=== PATIENT | female | born 1950 | race Caucasian/White ===

== ENCOUNTER 2018-09-10 06:31 | Day surgery (SDC) | payer BC, MEDICARE ==
[~2018-09-10] VITALS: Ht 170.2 cm; Wt 100.2 kg
[~2018-09-10 06:31] MED LIST: ALDACTONE25 MG PO; AMIODARONE200 MG OR; AMIODARONE200 MG PO; ASPIRIN EC81 MG PO; ASPIRIN LOW DOS81 M2 PO; ASPIRIN325 MG PO; ATORVASTATIN CA40 MG PO; BAYER ASA325 MG OR; BAYER ASPIRIN325 MG PO; BENICAR HCT1 TA1 OR; CARAFATE1 G1 PO; DARVOCET-N 100100 MG OR; DIABETA2.5 MG PO; DIGOXIN0.25 MG PO; DRY E-NATUR400 UNIT PO; FOLIC ACID1 MG PO; FOLIC ACID400 MC1 PO; GLYBURIDE5 M1 PO; HYDROXYCHLOR200 MG PO; IMDUR30 MG OR; IMDUR30 MG PO; INVOKANA300 MG PO; K-DUR/KLOR-CON10 MEQ OR; KLOR-CON M2020 MEQ PO; LASIX 40 MG40 MG/TAB PO; LASIX20 MG OR; LISINOP/HCTZ1 TA1 PO; LORTAB 5/3255 MG PO; MEDDOSEPAK PO; METHOTREXATE2.5 MG OR; METHOTREXATE2.5 MG PO; METO25TAB PO; METO50TA52 PO; MICRO-K10 ME1 PO; NITROLINGUAL SPRAY D TL; NORVASC2.5 MG PO; NORVASC5 MG PO; PLAQUENIL200 MG OR; PLAVIX75 MG PO; PROTONIX40 M2 PO; SOTALOL HCL80 MG PO; SULAR20 MG OR; SULFASALAZIN500 M1 PO; SYNTHROID100 MCG OR; SYNTHROID100 MCG PO; TRULICITY0.75 MG/0. IJ; VANTIN200 M1 PO; VITAMIN B-12500 MC2 PO; VITAMIN D2000 UNIT PO; VITAMIN E400 UNIT PO; XARELTO10 MG PO; ZESTORETIC 10-11 TAB; ZESTORETIC 20/11 TAB OR; ZESTORETIC1 TAB PO; [UNRECOGNIZED DRUG - OTHER] XX
[2018-09-10 08:34] VITALS: BP 108/57
== END 2018-09-10 08:59 | disposition home or self-care (01) | DRG 392 ==
LOC: ENDO 06:31 → ORM 08:30 → ENDO 08:59 → ORM 11:45 → ENDO 11:45
PROVIDERS: ATTEND Internal Medicine Gastroenterology
PROC: 0DB98ZX Excision of Duodenum, Via Natural or Artificial Opening Endoscopic, Diagnostic (ICD-10-PCS; principal; 2018-09-10)
PROC: 0DB78ZX Excision of Stomach, Pylorus, Via Natural or Artificial Opening Endoscopic, Diagnostic (ICD-10-PCS; 2018-09-10)
DX: K29.50 Unspecified chronic gastritis without bleeding (principal); D13.0 Benign neoplasm of esophagus; K57.30 Diverticulosis of large intestine without perforation or abscess without bleeding; K64.8 Other hemorrhoids; E11.9 Type 2 diabetes mellitus without complications; I25.10 Atherosclerotic heart disease of native coronary artery without angina pectoris; M06.9 Rheumatoid arthritis, unspecified; I48.91 Unspecified atrial fibrillation; I25.2 Old myocardial infarction; Z95.5 Presence of coronary angioplasty implant and graft; Z95.810 Presence of automatic (implantable) cardiac defibrillator; Z86.010 Personal history of colon polyps

== ENCOUNTER 2020-09-29 14:03 | Emergency (ER) | payer BC, MEDICARE ==
[~2020-09-29] VITALS: Ht 170.2 cm; Wt 97.0 kg
[2020-09-29] MEDS ORDERED: TRAMADOL HYDROC50 M1 PO (15:59)
[2020-09-29] MEDS ORDERED: FLEXERIL5 M1 PO (15:59)
[2020-09-29 16:04] VITALS: BP 159/85
== END 2020-09-29 16:10 | disposition home or self-care (01) | DRG 556 ==
LOC: ED 14:03
DX: M79.18 Myalgia, other site (principal); E11.9 Type 2 diabetes mellitus without complications; I11.0 Hypertensive heart disease with heart failure; I50.9 Heart failure, unspecified; I48.91 Unspecified atrial fibrillation; I25.2 Old myocardial infarction; Z95.0 Presence of cardiac pacemaker; Z79.84 Long term (current) use of oral hypoglycemic drugs

== ENCOUNTER 2021-11-18 09:10 | Emergency (ER) | payer BC, MEDICARE ==
[2021-11-18] VITALS (9 sets, daily range): BP systolic 103–148; BP diastolic 54–71
[~2021-11-18] VITALS: Ht 170.2 cm; Wt 86.0 kg
[~2021-11-18 09:10] MED LIST changes: +FLEXERIL5 M1 PO; +TRAMADOL HYDROC50 M1 PO
[2021-11-18 09:40] LABS: URINE BILIRUBIN - DIPSTICK NEGATIVE (NEGATIVE); URINE BLOOD DIPSTICK TRACE-INTACT (NEGATIVE); URINE COLOR YELLOW; URINE GLUCOSE - DIPSTICK >=1000 mg/dL (NEGATIVE); URINE KETONE NEGATIVE (NEGATIVE); URINE PROTEIN - DIPSTICK NEGATIVE (NEG-TRACE); URINE SPECIFIC GRAVITY 1.015; URINE UROBILINOGEN - DIPSTICK 0.2 E.U./dL (0.2)
[2021-11-18 09:42] LABS: URINE LEUK ESTERASE SMALL (NEGATIVE); URINE NITRITE - DIPSTICK NEGATIVE (Negative)
[2021-11-18 09:43] LABS: URINE RBC 0-2 RBC/hpf (0-5); URINE SQUAMOUS EPITHELIAL CELL FEW EPI/hpf (0-FEW)
[2021-11-18 09:56] LABS: HEMATOCRIT 44.5 % (37.0-47.0); HEMOGLOBIN 14.5 g/dl (12.0-16.0); IMMATURE GRANULOCYTES 0.2 % (0.0-5.0); MEAN CELL VOLUME 112.4 fL CALC (80.0-100.0); MEAN CORPUSCULAR HGB 36.6 pG CALC (26.0-32.0); MEAN CORPUSCULAR HGB CONC 32.6 g/dL CAL (32.0-36.0); NEUT# 8.05 thou/uL (2.00-7.15); RED BLOOD COUNT 3.96 mill/uL (4.20-5.60); RED CELL DISTRI WIDTH 13.9 % (11.5-15.5)
[2021-11-18 10:12] LABS: ACT PARTIAL THROMBO TIME 37.2 SECONDS (20.0-32.5); ALBUMIN 4.6 g/dL (3.2-5.0); ALKALINE PHOSPHATASE 85 u/l (38-126); ANION GAP 14 (6-22 (CALC)); BUN 16 mg/dL (8-23); BUN/CREATININE RATIO 20 (12-20 (CALC)); CARBON DIOXIDE 26 mmol/l (22-30); CHLORIDE 101 mmol/l (95-108); CREATININE 0.8 mg/dL (0.5-1.0); GFR > 60 ML/MIN (>=60 (CALC)); GFR FOR AFR.AMER. > 60 ML/MIN (>=60 (CALC)); LIPASE 41 u/l (23-300); POTASSIUM 4.2 mmol/l (3.5-5.1); SGOT/AST 28 u/l (9-36); SODIUM 137 mmol/l (137-146)
[2021-11-18 10:17] LABS: BILIRUBIN, TOTAL 1.3 mg/dL (0.0-1.4)
[2021-11-18 10:18] LABS: INTERNATIONAL NORMALIZED RATIO 1.4 RATIO (0.7-1.3); PROTHROMBIN TIME 14.3 SECONDS (9.0-12.5)
[2021-11-18] MEDS ORDERED: CIPROFLOXACN500 MG PO (11:51)
[2021-11-18] MEDS ORDERED: HYDROCO/APAP1 TA9 PO (11:51)
[2021-11-18] MEDS ORDERED: METRONIDAZOLE500 MG PO (11:51)
== END 2021-11-18 12:33 | disposition home or self-care (01) | DRG 392 ==
LOC: ED 09:10
DX: K57.32 Diverticulitis of large intestine without perforation or abscess without bleeding (principal); N39.0 Urinary tract infection, site not specified; I11.0 Hypertensive heart disease with heart failure; I50.9 Heart failure, unspecified; E11.9 Type 2 diabetes mellitus without complications; I48.91 Unspecified atrial fibrillation; I25.2 Old myocardial infarction; Z79.84 Long term (current) use of oral hypoglycemic drugs; Z20.822 Contact with and (suspected) exposure to COVID-19
CPT/HCPCS: Q9967

== ENCOUNTER 2022-03-07 15:34 | Emergency (ER) | payer MEDICARE, BC ==
[2022-03-07] VITALS (8 sets, daily range): BP systolic 131–149; BP diastolic 60–70
[~2022-03-07] VITALS: Ht 170.2 cm; Wt 93.2 kg
[~2022-03-07 15:34] MED LIST changes: +CIPROFLOXACN500 MG PO; +HYDROCO/APAP1 TA9 PO; +METRONIDAZOLE500 MG PO
[2022-03-07 16:53] LABS: HEMATOCRIT 41.7 % (37.0-47.0); HEMOGLOBIN 13.8 g/dl (12.0-16.0); IMMATURE GRANULOCYTES 0.5 % (0.0-5.0); MEAN CELL VOLUME 111.5 fL CALC (80.0-100.0); MEAN CORPUSCULAR HGB 36.9 pG CALC (26.0-32.0); MEAN CORPUSCULAR HGB CONC 33.1 g/dL CAL (32.0-36.0); NEUT# 4.54 thou/uL (2.00-7.15); RED BLOOD COUNT 3.74 mill/uL (4.20-5.60); RED CELL DISTRI WIDTH 13.4 % (11.5-15.5)
[2022-03-07 17:12] LABS: ALBUMIN 4.1 g/dL (3.2-5.0); ALKALINE PHOSPHATASE 82 u/l (38-126); ANION GAP 10 (6-22 (CALC)); BILIRUBIN, TOTAL 0.7 mg/dL (0.0-1.4); BUN 20 mg/dL (8-23); BUN/CREATININE RATIO 26 (12-20 (CALC)); CARBON DIOXIDE 30 mmol/l (22-30); CHLORIDE 105 mmol/l (95-108); CREATININE 0.7 mg/dL (0.5-1.0); GFR FOR AFR.AMER. > 60 ML/MIN (>=60 (CALC)); GFR OTHER RACES > 60 ML/MIN (>=60 (CALC)); LIPASE 27 u/l (23-300); POTASSIUM 4.5 mmol/l (3.5-5.1); SGOT/AST 20 u/l (9-36); SODIUM 140 mmol/l (137-146)
[2022-03-07 17:24] LABS: MYOGLOBIN 28 ng/mL (0 - 62)
[2022-03-07 18:04] LABS: URINE BILIRUBIN - DIPSTICK NEGATIVE (NEGATIVE); URINE BLOOD DIPSTICK NEGATIVE (NEGATIVE); URINE COLOR YELLOW; URINE GLUCOSE - DIPSTICK >=1000 mg/dL (NEGATIVE); URINE KETONE NEGATIVE (NEGATIVE); URINE LEUK ESTERASE NEGATIVE (NEGATIVE); URINE PH 5.5 (4.5-8.0); URINE PROTEIN - DIPSTICK NEGATIVE (NEG-TRACE); URINE SPECIFIC GRAVITY 1.015; URINE UROBILINOGEN - DIPSTICK 0.2 E.U./dL (0.2)
[2022-03-07 18:05] LABS: URINE NITRITE - DIPSTICK NEGATIVE (Negative)
[2022-03-07] MEDS ORDERED: MEDDOSEPAK PO (18:36)
== END 2022-03-07 19:11 | disposition home or self-care (01) ==
LOC: ED 15:34
PROVIDERS: Nurse Practitioner
DX: M06.9 Rheumatoid arthritis, unspecified (principal); I11.0 Hypertensive heart disease with heart failure; I50.9 Heart failure, unspecified; E11.9 Type 2 diabetes mellitus without complications; I48.91 Unspecified atrial fibrillation; I25.2 Old myocardial infarction; Z95.5 Presence of coronary angioplasty implant and graft; Z79.01 Long term (current) use of anticoagulants; Z79.02 Long term (current) use of antithrombotics/antiplatelets; Z95.0 Presence of cardiac pacemaker

== ENCOUNTER 2023-05-25 09:22 | Day surgery (SDC) | payer MEDICARE, BC ==
[~2023-05-25] VITALS: Ht 170.2 cm; Wt 89.8 kg
[~2023-05-25 09:22] MED LIST changes: +DIABETA PO; +DOXYCYCLINE100 MG PO; -METO25TAB PO; +TOPROL XL100 MG PO
[2023-05-25 10:46] VITALS: BP 114/62
== END 2023-05-25 11:02 | disposition home or self-care (01) ==
LOC: ORM 09:22
PROVIDERS: ATTEND Internal Medicine Gastroenterology
PROC: 0DB98ZX Excision of Duodenum, Via Natural or Artificial Opening Endoscopic, Diagnostic (ICD-10-PCS; principal; 2023-05-25)
PROC: 0DB78ZX Excision of Stomach, Pylorus, Via Natural or Artificial Opening Endoscopic, Diagnostic (ICD-10-PCS; 2023-05-25)
PROC: 0DB48ZX Excision of Esophagogastric Junction, Via Natural or Artificial Opening Endoscopic, Diagnostic (ICD-10-PCS; 2023-05-25)
DX: K29.70 Gastritis, unspecified, without bleeding (principal); E11.9 Type 2 diabetes mellitus without complications; E03.9 Hypothyroidism, unspecified; G47.33 Obstructive sleep apnea (adult) (pediatric); Z79.84 Long term (current) use of oral hypoglycemic drugs